=== PATIENT | male | born 1940 | race Caucasian/White ===

== ENCOUNTER → 2019-10-31 10:45 | Outpatient (CLI) | payer MEDICARE, OTHER, SELFPAY ==
[2019-10-31 11:21] LABS: BUN Creatinine Ratio 18.9 (6-22); Blood Urea Nitrogen 21 mg/dL (9-20); Estimated Glomerular Filt Rate > 60.0 mL/min (>60)
--- NOTE | 2019-10-31 12:00 | DI.CT.S_ITS ---
PROCEDURE: CT ABDOMEN PELVIS WO/W CON INDICATIONS: history of other diseases of urinary system TECHNIQUE: Optional 5 mm thick noncontrast images acquired from the diaphragm to the symphysis pubis. After the administration of intravenous contrast, 5 mm thick images acquired from the diaphragm to the symphysis pubis after a 10-minute delay. 2 mm thick coronal and sagittal reformats were then performed of the kidneys and ureters. For radiation dose reduction, the following was used: automated exposure control, adjustment of mA and/or kV according to patient size. COMPARISON: [facility], CT, IVP (ABD & PEL WWO CONTRAST), 10/12/2015, 12:49. FINDINGS: Image quality: Excellent. Lung bases: Scattered subsegmental atelectasis and/or scarring. No focal consolidation. Ill-defined subcentimeter ground glass nodular foci in the right middle lobe are unchanged. Heart size is normal. Coronary artery calcifications are present. Urinary system: Both kidneys are normal in size, without hydronephrosis or nephrolithiasis on pre-contrast images. No perinephric fat stranding. There is normal bilateral renal enhancement. Renal calyces appear normal in morphology when filled with contrast. Opacified portions of both ureters demonstrate normal caliber. Bladder wall thickness is normal. No calcified bladder stones. Other solid organs: Liver is normal in size and enhancement. Gallbladder negative. Biliary system is non dilated. Pancreas enhances normally. Spleen is normal in size and enhancement. No adrenal nodules. Peritoneum and bowel: Bowel loops demonstrate normal wall thickness and caliber. No free fluid or air. The appendix is within normal limits Nodes and vessels: No retroperitoneal or mesenteric adenopathy by size criteria. Aorta and inferior vena cava are normal in size. Small fat containing umbilical hernia. Pelvis: No pathologic free pelvic fluid. Fat containing left inguinal hernia Marked enlargement of the prostate. The bladder is decompressed, although there is possible circumferential wall thickening, mild. A definite intraluminal filling defect seen. Bones: No suspicious bony lesions. No vertebral body compression fractures. Diffuse spondylosis and facet arthropathy. IMPRESSION: No urolithiasis. No evidence of urinary obstruction Mild circumferential bladder wall thickening, probably unchanged. Enlarged prostate Coronary artery disease Scattered subsegmental atelectasis and/or scarring. No focal consolidation. Dictated by: Khang Bell M.D. on 10/31/2019 at 16:58 Approved by: Khang Bell M.D. on 10/31/2019 at 17:06
== END ==
PROVIDERS: PCP Internal Medicine; Referring Provider Urology; Visit Provider Urology
DX: N40.0 Benign prostatic hyperplasia without lower urinary tract symptoms (principal); I25.10 Atherosclerotic heart disease of native coronary artery without angina pectoris; K40.90 Unilateral inguinal hernia, without obstruction or gangrene, not specified as recurrent; K42.1 Umbilical hernia with gangrene; Z87.448 Personal history of other diseases of urinary system; Z98.890 Other specified postprocedural states; Z90.79 Acquired absence of other genital organ(s); Z87.898 Personal history of other specified conditions
CPT/HCPCS: 36415; 74178; 82565; 84520; Q9967

== ENCOUNTER → 2025-05-30 10:42 | Outpatient (CLI) | payer MEDICARE, OTHER, SELFPAY | PROVIDERS: PCP Family Medicine; Referring Provider Internal Medicine Critical Care Medicine; Visit Provider Internal Medicine Critical Care Medicine | DX: R06.00 Dyspnea, unspecified (principal); R94.2 Abnormal results of pulmonary function studies | CPT/HCPCS: 94060; 94726; 94729 ==

== ENCOUNTER → 2025-05-30 13:12 | Outpatient (CLI) | payer MEDICARE, OTHER, SELFPAY ==
--- NOTE | 2025-05-30 13:13 | DI.CT.S_ITS ---
PROCEDURE: CT CHEST HIGH RESOLUTION INDICATIONS: Interstitial abnormalities on chest x-ray, eval for ILD TECHNIQUE: Noncontrast 1.0 and 5.0 mm thick contiguous axial sections from the pulmonary apex to the posterior costophrenic angles, with 7 mm thick coronal and sagittal MIP reformats. 1 mm thick dynamic expiratory images acquired through the upper, mid, and lower lungs. 1.0 mm thick axial sections acquired from the madalyn to the posterior costophrenic angles in the prone end-inspiration position. For radiation dose reduction, the following was used: automated exposure control, adjustment of mA and/or kV according to patient size. COMPARISON: None. FINDINGS: Image quality: Diagnostic. Lungs and Pleura: Central airways are patent. Mild bilateral lower lobe peripheral bronchiectasis. No significant bronchial wall thickening. Bilateral subpleural reticulation diffusely, without a definite basal predominance. There are few short segment areas of early honeycombing, specifically posterolateral right lower lobe, series 11, image 97. No nodule, mass, ground-glass opacity, or consolidation. Mild posterior bibasilar irregular pleural thickening. No calcified pleural plaques. No pleural effusion. Lower Neck: No enlarged lymph nodes. Thyroid: Normal CT appearance. Axillae: No enlarged lymph nodes. Chest Wall: No suspicious chest wall lesions. Bones: No suspicious bone lesion. Mild degenerative changes in the spine, most severe at T8-9. Thoracic Vessels: The ascending aorta is mildly enlarged at 4.4 cm short axis. The pulmonary outflow tract is mildly enlarged at 3.1 cm short axis. Mild aortic arch and descending aortic calcification. Mediastinum and Drea: Borderline, and nonspecific central mediastinal adenopathy, specifically of precarinal measuring 1.2 cm short axis. Heart: Mildly enlarged heart with heavy coronary artery calcification versus stenting. Aortic valvular and mitral annular calcification. No pericardial effusion. Esophagus: No wall thickening. No hiatal hernia. Upper Abdomen: Scattered splenic granulomas. Splenic artery atherosclerotic calcification. Visible portions of upper abdominal organs are otherwise normal. 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 No suspicious nodules or masses. Enlarged great vessels and heavy coronary artery calcification. Consider cardiology consult. Dictated by: Elisa Lennon M.D. on 05/30/2025 at 15:30 Approved by: Elisa Lennon M.D. on 05/30/2025 at 15:40
== END ==
LOC: CT 13:13
PROVIDERS: PCP Family Medicine; Referring Provider Internal Medicine Critical Care Medicine; Visit Provider Internal Medicine Critical Care Medicine
DX: R91.8 Other nonspecific abnormal finding of lung field (principal); J47.9 Bronchiectasis, uncomplicated; I51.7 Cardiomegaly; I70.0 Atherosclerosis of aorta; I25.10 Atherosclerotic heart disease of native coronary artery without angina pectoris; I34.81 Nonrheumatic mitral (valve) annulus calcification; I77.810 Thoracic aortic ectasia; R06.00 Dyspnea, unspecified; R94.2 Abnormal results of pulmonary function studies
CPT/HCPCS: 71250; 94060; 94726; 94729